=== PATIENT | female | born 1955 | race Caucasian/White ===

== ENCOUNTER 2022-11-14 17:32 | Emergency (ER) | payer MEDICARE, SELFPAY ==
[2022-11-14 19:29] VITALS: BP 141/91; PULSE 71; RESP 14; TEMP 36.7; O2SAT 94; BMI 26.2
[2022-11-14 20:16] VITALS: BP 0/0; PULSE 0; RESP 0; TEMP -17.7; TEMP 0; O2SAT 0
== END 2022-11-14 20:17 | disposition left against medical advice (07) ==
LOC: ER 19:49
PROVIDERS: Emergency Provider Emergency Medicine; PCP Nurse Practitioner Family
DX: S60.219A Contusion of unspecified wrist, initial encounter (principal)
CPT/HCPCS: 99211